=== PATIENT | male | born 1995 | race Two or more races ===

== ENCOUNTER 2020-10-06 19:27 | Emergency (ER) | payer OTHER, SELFPAY ==
[2020-10-06 19:55] VITALS: BP 129/75; PULSE 98; RESP 19; TEMP 37.3; O2SAT 99; BMI 27.1
--- NOTE | 2020-10-06 21:44 | ED.GENADULT ---
HPI - General Adult General Chief complaint: General Medical Stated complaint: Dizziness, Sob, Nausea Time Seen by Provider: 10/06/20 21:44 Source: patient Mode of arrival: ambulatory Limitations: no limitations History of Present Illness HPI narrative: 4 days has had dizziness, nausea and shortness of breath Onset (ago): day(s) Severity: mild Related Data Allergies Allergy/AdvReac Type Severity Reaction Status Date / Time No Known Allergies Allergy Unverified 08/15/20 18:39 [No Known Allergies*] Review of Systems Constitutional: Constitutional: Reports no additional constitutional complaints Eyes: Eyes: Reports no additional eye complaints ENT: Denies dizziness Cardiovascular: Cardiovascular: Reports no additional cardiovascular complaints Respiratory: Respiratory: Reports as per HPI Gastrointestinal: Gastrointestinal: Reports no additional gastrointestinal complaints Musculoskeletal: Musculoskeletal: Reports no additional musculoskeletal complaints Integumentary/Breasts: Skin/Breast: Denies rash Neurologic: Reports system reviewed and no additional complaints, except as documented, Denies dizziness and Denies Sensory deficit (Neuro) Psychiatric: Psychiatric: Denies anxiety [facility] Past Medical History Medical History No significant past medical history Social History Social History Alcohol intake: never Smoking Status: Never smoker Use of substances other than those prescribed or required for medical reasons: No Advance Directives: No Advance Directives Information Provided: Yes Physical Exam Vital Signs: Vital Signs: Last Vital Signs Temp 99.1 F 10/06/20 19:55 Pulse 78 10/06/20 22:16 Resp 16 10/06/20 22:16 BP 122/68 10/06/20 22:16 Pulse Ox 98 10/06/20 22:16 Body Mass Index 27.1 Const: General: healthy appearing Nutritional Appearance: average body habitus Orientation/consciousness: oriented to person and patient oriented x3 Limitations: no limitations HENMT: Head: Yes normal to inspection Ears: external ears normal General nose exam: Normal external nose present Mouth: Normal oral and palatal mucosa present and oropharynx normal Throat: Yes posterior oropharynx normal Eyes: General: appearance normal, both eyes and all related structures Neck: Other: supple Neck: Yes normal visual inspection Chest: Chest palpation & inspection: normal inspection of the chest Resp: Auscultation: clear to auscultation bilaterally Cardio: Jugular venous distension: no JVD Rate: regular rate Rhythm: regular rhythm Heart sounds: S1 normal heart sound present and S2 normal heart sound present GI: Inspection: Yes normal to inspection Palpation (GI): Soft to palpation, nontender and No hepatosplenomegaly present Auscultation: normal bowel sounds : General: Yes no CVA tenderness Back/Spine/Pelvis: Back: no CVA tenderness Skin: General skin exam: no rashes or lesions noted Neuro: General: oriented to person and patient oriented x3 Cranial nerves: Yes CN's II-XII intact bilaterally Motor exam (neuro): 5/5 motor strength present throughout Sensory Exam: No Sensory deficit (Neuro) Extrem: General: Yes normal to inspection Psych: Appearance: grossly normal Course Course Course Narrative: patient looks well, no evidence of DM as patient was concerned, COVID swab pending Medical Decision Making MDM Narrative Medical decision making narrative: Healthy appearing male, COVID pending, sugar slightly elevated Lab Data Labs: Lab Results 10/06/20 Range/Units 22:12 POC Glucose 116 H (60-115) mg/dL Discharge Plan Discharge Clinical Impression: COVID-19 Patient Disposition: Home, Self-Care Instructions: COVID-19 (Coronavirus Disease 2019) (ED) Additional Instructions: return for increasing shortness of breath Referrals: Physician,Unknown [Primary Care Provider] - 2 days
[2020-10-06 22:16] VITALS: BP 122/68; PULSE 78; RESP 16; O2SAT 98
--- NOTE | 2020-10-06 22:16 | PC.NURSE ---
POC noted to be 116 mg/dl. Covid swab obtained and sent.
[2020-10-06 22:20] LABS: Glucose, Whole Blood 116 mg/dL (60-115)
== END 2020-10-06 22:51 | disposition home or self-care (01) ==
PROVIDERS: Emergency Provider Emergency Medicine
DX: R42 Dizziness and giddiness (principal); R11.0 Nausea; Z20.828 Contact with and (suspected) exposure to other viral communicable diseases
CPT/HCPCS: 82947; 99283; U0003

== ENCOUNTER → 2020-11-07 12:37 | Outpatient (REF) | payer OTHER, SELFPAY ==
--- NOTE | 2020-11-07 13:00 | ECG_ITS ---
Hook-up date: 2020-11-07 12:53:00 Duration: 25:59:00 Test Indications: DIZZINESS Medications: [id number] QRS complexes 1 Ventricular ectopics which represent <1 % of total QRS comp. * Supraventricular ectopics which represent % of total QRS comp. * Paced QRS complexs which represent % of total QRS comp. VENTRICULAR ECTOPY 1 Isolated 0 Bigeminal Cycles 0 Couplets 0 Runs 0 Beats in Runs * Beats LONGEST at * BPM at :: -- * Beats FASTEST at * BPM at :: -- SUPRAVENTRICULAR ECTOPY * Isolated * Couplets * Runs * Beats in Runs * Beats LONGEST at * BPM at :: -- * Beats FASTEST at * BPM at :: -- HEART RATES 44 MIN at 05:18:10 2020-11-08 80 AVG 135 MAX at 07:45:31 2020-11-08 LONGEST RR 1.4800 secs at 05:18:06 2020-11-08 S-T LEVELS Channel 1 - 128 mm at 12:53:00 2020-11-07 - 128 mm at 12:53:00 2020-11-07 Channel 2 - 128 mm at 12:53:00 2020-11-07 - 128 mm at 12:53:00 2020-11-07 Channel 3 - 128 mm at 03:21:21 -- - 128 mm at 03:21:21 Underlying rhythm is sinus; Average ventricular rate 80/min; range 44-135/min; No significant supraventricular or ventricular ectopy; No sustained arrhythmias; Patient did not report any symptoms in the diary Referred By: Natalie Zacarias Overread By: ROMIE GERARD
== END ==
LOC: HO.CARD 12:37
PROVIDERS: PCP Internal Medicine; Visit Provider Family Medicine
DX: R42 Dizziness and giddiness (principal)
CPT/HCPCS: 93226

== ENCOUNTER 2021-01-15 08:45 | Outpatient (REF) | payer OTHER, SELFPAY | END 2021-01-15 08:46 | disposition home or self-care (01) | LOC: HO.LAB 08:45 | PROVIDERS: PCP Family Medicine; Visit Provider Internal Medicine | DX: Z20.822 Contact with and (suspected) exposure to COVID-19 (principal) | CPT/HCPCS: 36415; C9803; U0003; U0005 ==

== ENCOUNTER 2022-03-28 19:43 | Emergency (ER) | payer MEDICAID, SELFPAY ==
--- NOTE | ~2022-03-28 | XR_ITS ---
EXAMINATION: XR HAND, LEFT CLINICAL INFORMATION: Pain. Swelling. Trauma COMPARISON: None TECHNIQUE: PA, lateral, and oblique views of the left hand. FINDINGS: The bones and soft tissues are normal. No fracture. Alignment is anatomic. Joint spaces are maintained. No erosions or soft tissue calcifications. XR/XR hand LT min 3V IMPRESSION: Normal left hand.
--- NOTE | ~2022-03-28 | XR_ITS ---
EXAMINATION: XR WRIST, LEFT CLINICAL INFORMATION: Pain COMPARISON: 03/28/2022 images of the hand TECHNIQUE: Four views of the left wrist. FINDINGS: The bones and soft tissues are normal. No fracture. Alignment is anatomic with normal joint spaces. No erosions or abnormal soft tissue calcifications. XR/XR wrist LT 2V IMPRESSION: No acute bony abnormality. Incidental ulnar negative variance of the wrist.
[2022-03-28 20:13] VITALS: BP 130/70; PULSE 70; RESP 14; TEMP 36.6; O2SAT 99; BMI 28.5
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
[2022-03-28] MEDS: Morphine Sulfate Immed Release 15 MG TABLET PO (22:07)
== END 2022-03-28 22:31 | disposition home or self-care (01) ==
LOC: HO.ED 20:54
PROVIDERS: Emergency Provider Emergency Medicine Emergency Medical Services
DX: M79.642 Pain in left hand (principal); M79.89 Other specified soft tissue disorders
CPT/HCPCS: 73100; 73130; 99283; 99284

== ENCOUNTER 2022-04-01 08:36 | Outpatient (REF) | payer MEDICAID, SELFPAY ==
--- NOTE | ~2022-04-01 | XR_ITS ---
EXAMINATION: XR WRIST, LEFT CLINICAL INFORMATION: Left wrist pain. COMPARISON: 03/28/2022 TECHNIQUE: 4 views of the left wrist. FINDINGS: There is no evidence of acute fracture or dislocation of the left wrist. Left wrist joint spaces are maintained. There is mild negative ulnar variation present. No significant soft tissue swelling appreciated. XR/XR wrist LT w scaphoid IMPRESSION: No significant abnormality of the left wrist identified.
== END 2022-04-01 08:37 | disposition home or self-care (01) ==
LOC: HO.HOSX 08:36
PROVIDERS: Visit Provider Orthopaedic Surgery
DX: M25.532 Pain in left wrist (principal); S62.341A Nondisplaced fracture of base of second metacarpal bone, left hand, initial encounter for closed fracture; Y04.0XXA Assault by unarmed brawl or fight, initial encounter; Y93.9 Activity, unspecified; Y92.9 Unspecified place or not applicable; Y99.8 Other external cause status
CPT/HCPCS: 73110; 99202

== ENCOUNTER 2022-04-14 18:28 | Outpatient (REF) | payer MEDICAID, SELFPAY ==
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
== END 2022-04-14 18:29 | disposition home or self-care (01) ==
LOC: HO.MRI 18:28
PROVIDERS: Visit Provider Orthopaedic Surgery
DX: M25.532 Pain in left wrist (principal)
CPT/HCPCS: 73221

== ENCOUNTER 2022-04-28 09:13 | Outpatient (REF) | payer MEDICAID, SELFPAY ==
--- NOTE | ~2022-04-28 | XR_ITS ---
EXAMINATION: XR HAND, LEFT CLINICAL INFORMATION: Pain left hand. COMPARISON: Left wrist 04/01/2022. MRI left wrist 04/14/2022. TECHNIQUE: PA, lateral, and oblique views of the left hand. FINDINGS: There is a nondisplaced fracture base of proximal 2nd metacarpal. No additional fracture seen. The soft tissues are grossly unremarkable. XR/XR hand LT min 3V IMPRESSION: Nondisplaced fracture base of proximal 2nd metacarpal as seen on MRI and retrospectively on the plain films. There is no change. The soft tissues are unremarkable.
== END 2022-04-28 09:14 | disposition home or self-care (01) ==
LOC: HO.HOSX 09:13
PROVIDERS: Visit Provider Orthopaedic Surgery
DX: S62.311A Displaced fracture of base of second metacarpal bone, left hand, initial encounter for closed fracture (principal); X58.XXXA Exposure to other specified factors, initial encounter; Y93.9 Activity, unspecified; Y92.9 Unspecified place or not applicable; Y99.9 Unspecified external cause status
CPT/HCPCS: 73130; 99212

== ENCOUNTER 2022-07-31 22:54 | Emergency (ER) | payer MEDICAID, SELFPAY ==
[2022-07-31 22:55] VITALS: BP 133/69; PULSE 79; RESP 16; TEMP 35.8; O2SAT 99; BMI 28.5
== END 2022-08-01 03:48 | disposition left against medical advice (07) ==
PROVIDERS: Emergency Provider Emergency Medicine; PCP Nurse Practitioner Primary Care
DX: R22.41 Localized swelling, mass and lump, right lower limb (principal)
CPT/HCPCS: 99281

== ENCOUNTER 2023-03-31 13:06 | Emergency (ER) | payer MEDICAID, SELFPAY ==
[2023-03-31 13:34] VITALS: BP 126/69; PULSE 74; RESP 18; TEMP 36.6; O2SAT 98; BMI 28.7
--- NOTE | 2023-03-31 13:53 | ED.SKABFB ---
HPI - Skin/Abscess/Foreign Bdy General Chief complaint: Skin/Abscess/Foreign Body Stated complaint: rash on right side Time Seen by Provider: 03/31/23 13:43 Source: patient, RN notes reviewed and old records reviewed Mode of arrival: ambulatory History of Present Illness HPI narrative: 27-year-old male with no significant past medical history presenting to the ED complaining of painful rash to right groin area x3 days. Reports area is worsening with slight drainage. Patient admits he is sexually active with 1 partner, denies concern or history of STI. Denies injury/trauma, testicular/scrotal pain, fever, dysuria/hematuria, abdominal pain, nausea/vomiting MD complaint: rash Onset (ago): day(s) Related Data Previous Rx's Medication Instructions Recorded morphine 15 mg immediate release 15 mg PO Q8H PRN pain #10 tabs 03/28/22 tablet cephalexin 500 mg capsule 500 mg PO QID 7 days #28 caps 03/31/23 doxycycline hyclate 100 mg tablet 100 mg PO BID 7 days #14 tabs 03/31/23 mupirocin 2 % topical ointment 1 appl topical BID 7 days #22 grams 03/31/23 Allergies Allergy/AdvReac Type Severity Reaction Status Date / Time No Known Allergies Allergy Verified 03/31/23 13:36 [No Known Allergies*] Review of Systems Review of Systems: Constitutional: No Fever, No Chills ENT/Mouth: No Ear Pain, No Nasal Congestion, No sore throat, No Rhinorrhea, No Swallowing Difficulty Cardiovascular: No Chest Pain, No SOB Respiratory: No Cough, No Sputum, No Wheezing Gastrointestinal: No Nausea, No Vomiting, No Diarrhea, No Constipation, No Abdominal pain Genitourinary: No Dysuria, No Hematuria, No Flank Pain Musculoskeletal: No joint pain, No Myalgias, No Joint Swelling Skin: +Skin Lesions, + rash Neuro: No Weakness, No Numbness, No Paresthesias Yes all other systems are reviewed and are negative Constitutional: Constitutional: Reports as per [facility] Past Medical History Attestation statement: The following information was validated with the patient. Source: old records reviewed Medical History No significant past medical history Social History Social History Alcohol intake: never Patient Tobacco Use Status: Never used Tobacco Advance Directives: No Advance Directives Information Provided: No Current occupational status: employed Current occupation: rt hand / maintenance Physical Exam Vital Signs: Vital Signs: Last Vital Signs Temp 98 F 03/31/23 13:34 Pulse 74 03/31/23 13:34 Resp 18 03/31/23 13:34 BP 126/69 03/31/23 13:34 Pulse Ox 98 03/31/23 13:34 O2 Del Method Room Air 03/31/23 13:34 BMI result Body Mass Index 28.7 Const: General: cooperative, healthy appearing and no acute distress Orientation/consciousness: patient oriented x3 Limitations: no limitations HEENT: Head: Yes normal to inspection and Yes atraumatic Ears: hearing grossly normal bilaterally General nose exam: Normal external nose present Face and sinus: Yes normal facial exam Eyes: General: appearance normal, both eyes and all related structures EOM: EOMs intact bilaterally Neck: Neck: Yes normal visual inspection and Yes no meningeal signs Resp: Effort & Inspection: normal respiratory effort and no respiratory distress Cardio: Rate: regular rate GI: Inspection: Yes normal to inspection Palpation (GI): Soft to palpation, nontender, no guarding and not rigid : Other: + right groin/inguinal area with small pustules/folliculitis and surrounding erythema, + induration, no fluctuance. No warmth. No extension to testicle/scrotum, right testicle nontender. No appreciable hernia no active drainage Neuro: General: patient oriented x3, tone normal, moves all extremities and no meningeal signs Gait exam (Neuro): Normal gait present Extrem: General: Yes normal to inspection Medical Decision Making Medical Decision Making MDM Narrative: 27-year-old male with no significant past medical history presenting to the ED complaining of painful rash to right groin area x3 days. On exam vital signs stable, NAD, nontoxic appearing, physical exam as noted above with suspected folliculitis with small pustules to right inguinal/groin area with surrounding cellulitis and small indurated area. No fluctuance or active drainage. No appreciable ulcerations. Testicle nontender. No evidence of Garfield gangrene. Lower suspicion for STI/UTI Plan: Herpes culture, routine culture, p.o. antibiotics, topical mupirocin Results discussed with patient including worrisome signs and symptoms and strict return precautions, and when to return to the emergency department. They verbalized understanding and feel safe for discharge at this time. Differential Diagnosis Differential Diagnoses: The differential diagnosis associated with the presentation includes As above Admission/Observation Consideration of admission/observation: Escalation of care including admission/observation considered Lab Data MDM Lab Attestation statement: I reviewed the patient's lab results. Radiology Impression Discussion of test interpretation with radiology: I have reviewed the radiologist's reading. External Record Review External record reviewed: Inpatient record, Office record, Outpatient record, Prior outpatient labs, Prior outpatient radiology, Primary care record and Outside ED record Tests considered The following testing was considered but not selected: As above Prescription Management I considered prescription management with: Pain Medication, Antiviral and Antibiotic Discharge Plan Discharge Clinical Impression: Folliculitis, Cellulitis, Abscess Patient Disposition: Home, Self-Care Instructions: Cellulitis (DC), Folliculitis (ED), Abscess (ED) Additional Instructions: You have an infection of your hair follicle called folliculitis. Mupirocin as a topical antibiotic please use as prescribed You also have surrounding cellulitis/infection and underlying abscess. Doxycycline and Keflex are oral antibiotics take as prescribed If redness is spreading/worsening, pain becomes unbearable, area turns to a burleson, you have fever, difficulty urinating return to the ED immediately Apply warm compresses at home Follow up with your doctor Prescriptions: New mupirocin 2 % ointment 1 appl topical BID 7 Days Qty: 22 0RF cephalexin 500 mg capsule 500 mg PO QID 7 Days Qty: 28 0RF doxycycline hyclate 100 mg tablet 100 mg PO BID 7 Days Qty: 14 0RF No Action morphine 15 mg tablet 15 mg PO Q8H PRN (Reason: pain) Qty: 10 0RF Rx Instructions: Patient can partially filled this prescription upon request Referrals: Y[facility] [Primary Care Provider] - 3 days Stand Alone Forms: Work/School Release Interventions: ED Discharge Assessment Last Done: 03/31/23 15:30 Discharge Date/Time: 03/31/23 15:31
== END 2023-03-31 15:31 | disposition home or self-care (01) ==
PROVIDERS: Physician Assistant; Emergency Provider Student in an Organized Health Care Education/Training Program; PCP Nurse Practitioner Primary Care
DX: L73.9 Follicular disorder, unspecified (principal); L02.214 Cutaneous abscess of groin; L03.314 Cellulitis of groin
CPT/HCPCS: 36415; 87070; 87205; 87255; 99283

== ENCOUNTER 2024-06-15 08:13 | Outpatient (REF) | payer OTHER, SELFPAY ==
[2024-06-15 11:24] LABS: MANUAL DIFF FLAG NO
[2024-06-15 11:30] LABS: Basophils Percent Auto 0.6 % (0-2); Eosinophils Percent Auto 0.9 % (0-4); Hematocrit 44.2 % (42.0-52.0); Hemoglobin 14.8 g/dl (14.0-18.0); Imm Gran Abs Auto 0.01 X10*3/uL (0.00-0.03); Imm Gran Pct Auto 0.2 % (0.0-0.4); Lymphocytes Absolute Auto 1.5 X10*3/uL (1.2-4.9); Lymphocytes Percent Auto 31.7 % (20-40); Mean Corpuscular HGB Conc 33.5 g/dl (31.0-36.0); Mean Corpuscular Hemoglobin 28.7 pg (27.0-33.0); Mean Corpuscular Volume 85.8 fL (80.0-98.0); Monocytes Absolute Auto 0.3 X10*3/uL (0.1-1.2); Monocytes Percent Auto 7.1 % (2-11); Neutrophils Absolute Auto 2.8 x10*3/uL (2.0-8.3); Neutrophils Percent Auto 59.5 % (45-73); Platelet Count 147 X10*3/uL (160-400); Red Blood Count 5.15 X10*6/uL (4.60-5.80); Red Cell Distribution Width 11.8 % (11.0-16.0); White Blood Count 4.7 X10*3/uL (4.8-10.8)
[2024-06-15 11:45] LABS: Anion Gap 12 (12-20); Blood Urea Nitrogen 20 mg/dL (9-16); Calcium 9.8 mg/dL (8.4-10.2); Carbon Dioxide 24 mmol/L (22-29); Chloride 108 mmol/L (96-108); Cholesterol 173 mg/dL (<200); Estimated Glomerular Filt Rate > 60; Glucose Random 86 mg/dL (60-115); HDL Cholesterol 41 mg/dL (>40); LDL Cholesterol Calculated 115 mg/dL (<100); Magnesium 2.1 mg/dL (1.6-2.6); Potassium 4.4 mmol/L (3.3-5.1); Sodium 140 mmol/L (135-145); Triglycerides 87 mg/dL (<150)
[2024-06-15 11:56] LABS: HIV AB/AG Nonreactive (Nonreactive); HIV Num 1 0.05 S/CO (0.00-0.99)
[2024-06-15 12:04] LABS: Vitamin D 25-OH Total 39.5 ng/mL (>30)
[2024-06-15 13:29] LABS: CT PCR NOT DETECTED (Not Detect.); NG PCR NOT DETECTED (Not Detect.)
[2024-06-20 19:29] LABS: Aldolase 6.2 U/L (<=8.1)
== END 2024-06-15 08:14 | disposition home or self-care (01) ==
LOC: HO.HHCL 08:13
PROVIDERS: Visit Provider Family Medicine
DX: M79.604 Pain in right leg (principal); M79.605 Pain in left leg; Z11.3 Encounter for screening for infections with a predominantly sexual mode of transmission; E78.5 Hyperlipidemia, unspecified
CPT/HCPCS: 36415; 80048; 80061; 82085; 82306; 82550; 83735; 84443; 85025; 87389; 87491; 87591

== ENCOUNTER 2024-07-12 13:37 | Outpatient (RCR) | payer OTHER, SELFPAY | END 2024-08-30 15:07 | disposition home or self-care (01) | LOC: HO.PT 13:37 | PROVIDERS: PCP Nurse Practitioner Primary Care; Visit Provider Family Medicine | DX: M79.604 Pain in right leg (principal); M79.605 Pain in left leg | CPT/HCPCS: 97110; 97161; 97535 ==

== ENCOUNTER 2024-10-19 08:14 | Outpatient (REF) | payer OTHER, SELFPAY ==
[2024-10-19 11:21] LABS: MANUAL DIFF FLAG NO
[2024-10-19 11:26] LABS: Basophils Absolute Auto 0.1 X10*3/uL (0.0-0.2); Basophils Percent Auto 1.1 % (0-2); Eosinophils Absolute Auto 0.1 X10*3/uL (0.0-0.4); Eosinophils Percent Auto 1.1 % (0-4); Hematocrit 45.1 % (42.0-52.0); Hemoglobin 15.2 g/dl (14.0-18.0); Imm Gran Abs Auto 0.01 X10*3/uL (0.00-0.03); Imm Gran Pct Auto 0.2 % (0.0-0.4); Lymphocytes Absolute Auto 1.3 X10*3/uL (1.2-4.9); Lymphocytes Percent Auto 26.3 % (20-40); Mean Corpuscular HGB Conc 33.7 g/dl (31.0-36.0); Mean Corpuscular Hemoglobin 28.7 pg (27.0-33.0); Mean Corpuscular Volume 85.1 fL (80.0-98.0); Mean Platelet Volume 11.6 fL (9.4-12.4); Monocytes Absolute Auto 0.3 X10*3/uL (0.1-1.2); Monocytes Percent Auto 5.7 % (2-11); Neutrophils Absolute Auto 3.1 x10*3/uL (2.0-8.3); Neutrophils Percent Auto 65.6 % (45-73); Platelet Count 158 X10*3/uL (160-400); Red Cell Distribution Width 11.7 % (11.0-16.0); White Blood Count 4.8 X10*3/uL (4.8-10.8)
[2024-10-19 11:45] LABS: Rheumatoid Factor < 13.0 IU/mL (<15.0)
[2024-10-19 11:56] LABS: Alanine Aminotransferase 63 U/L (0-40); Albumin Level 4.5 g/dL (3.5-5.0); Alkaline Phosphatase 58 U/L (39-117); Aspartate Amino Transferase 34 U/L (5-37); Bilirubin Direct 0.3 mg/dL (0.0-0.5); Bilirubin Total 1.2 mg/dL (0.0-1.0); C Reactive Protein < 0.10 mg/dL (< or = 0.50); Total Protein 6.8 g/dL (6.5-8.0)
[2024-10-19 12:06] LABS: Erythrocyte Sedimentation Rate 1 MM/HR (0-15)
[2024-10-19 12:15] LABS: Folate 12.9 ng/mL (> or = 4.0); Vitamin B12 479 pg/mL (200-900)
[2024-10-23 11:23] LABS: A. Phagocytphilium DNA,RT-PCR NOT DETECTED (NOT DETECTED); Babesia Microti DNA, RT-PCR NOT DETECTED (NOT DETECTED); Borrelia Miyamotoi,DNA RT-PCR NOT DETECTED (NOT DETECTED); E.Chaffeensis DNA RT-PCR NOT DETECTED (NOT DETECTED); Lyme(Borrelia ssp)DNA RT-PCR NOT DETECTED (NOT DETECTED)
[2024-10-24 08:44] LABS: Anti Nuclear Antibody Screen NEGATIVE (NEGATIVE)
[2024-10-24 21:48] LABS: Aldolase 9.4 U/L (<=8.1)
== END 2024-10-19 08:15 | disposition home or self-care (01) ==
LOC: HO.HHCL 08:14
PROVIDERS: Visit Provider Family Medicine
DX: M79.18 Myalgia, other site (principal)
CPT/HCPCS: 36415; 80076; 82085; 82550; 82607; 82746; 85025; 85652; 86038; 86140; 86431; 87468; 87469; 87478; 87484; 87798

== ENCOUNTER 2024-10-28 22:29 | Emergency (ER) | payer OTHER, SELFPAY ==
[2024-10-28 22:34] VITALS: BP 131/72; PULSE 77; RESP 16; TEMP 37; O2SAT 98
--- NOTE | 2024-10-28 22:51 | ED_ITS ---
HPI - General Adult General Chief complaint: General Medical Stated complaint: left shoulder/bilateral leg pain Time Seen by Provider: 10/28/24 22:42 Source: patient Mode of arrival: ambulatory Limitations: no limitations History of Present Illness ED Provider: Dr. Carito Benson HPI narrative: Patient comes to the emergency room complaining of left shoulder pain and bilateral lower leg pain for several months, close to a year according to the patient. Patient states that he has addressed this issue with his PCP, patient is waiting for a referral to be confirm for rheumatology. Patient states that nothing has changed, 4 months, it is the usual pain. Denies any injuries. 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 States that he recently got blood work done and his CPK was a bit elevated. Related Data Previous Rx's ?Medication ?Instructions ?Recorded morphine 15 mg immediate release 15 mg PO Q8H PRN pain #10 tabs 03/28/22 tablet cephalexin 500 mg capsule 500 mg PO QID 7 days #28 caps 03/31/23 doxycycline hyclate 100 mg tablet 100 mg PO BID 7 days #14 tabs 03/31/23 mupirocin 2 % topical ointment 1 appl topical BID 7 days #22 grams 03/31/23 cyclobenzaprine 10 mg tablet 10 mg PO TID PRN muscle spasm #10 10/28/24 tabs naproxen 500 mg tablet 500 mg PO BID #14 tabs 10/28/24 Allergies Allergy/AdvReac Type Severity Reaction Status Date / Time No Known Allergies Allergy Verified 10/28/24 22:37 [No Known Allergies*] Review of Systems Review of Systems: Constitutional : No Weight loss, No Fever, No Chills, No Night Sweats, No Fatigue, No Malaise ENT/Mouth : No Hearing loss, No Ear Pain, No Nasal Congestion, No Sinus Pain, No Hoarseness, No sore throat, No Rhinorrhea, No Swallowing Difficulty Eyes: No Eye Pain, No Swelling, No Redness, No Foreign Body, No Discharge, No Vision Changes Cardiovascular : No Chest Pain, No SOB, No Dyspnea on Exertion, No Orthopnea, No Edema, No Palpitations Respiratory : No Cough, No Sputum, No Wheezing, No Smoke Exposure, No Dyspnea Gastrointestinal : No Nausea, No Vomiting, No Diarrhea, No Constipation, No abdominal Pain, No Hematochezia, No Melena Genitourinary : no irregular bleeding, No Dysuria, No Urinary Frequency, No Hematuria, No Urinary Incontinence, No Urgency, No Flank Pain, No Urinary Flow Changes, No Hesitancy Musculoskeletal : Chronic shoulder pain and chronic lower extremity pain, No Myalgias, No Joint Swelling Skin : No Skin Lesions, No rash Neuro : No Weakness, No Numbness, No Paresthesias, No Loss of Consciousness, No Dizziness, No Headache Psych : No Anxiety/Panic, No Depression, No SI/HI/AH/VH, No Social Issues, Heme/Lymph: No Bruising, No Bleeding,No Lymphadenopathy Endocrine : No Polyuria, No Polydipsia, No Temperature Intolerance [facility] Past Medical History Medical History No significant past medical history Social History Social History Alcohol intake: never Patient Tobacco Use Status: Never used Tobacco Advance Directives: No Advance Directives Information Provided: No Current occupational status: employed Current occupation: rt hand / maintenance Physical Exam ED Vital Signs: Vital Signs - 24 hr 10/28/24 22:34 Temperature 98.6 F Pulse Rate 77 Respiratory Rate 16 Blood Pressure 131/72 Pulse Oximetry 98 Oxygen Delivery Method Room Air BMI result Body Mass Index 30.0 Const Other: Appearance: Alert. Oriented X3. No acute distress. Well-appearing Eyes: Pupils equal, round and reactive to light. ENT: Pharynx normal. Neck: Normal inspection. Neck supple. No lymph nodes noted. No crepitus CVS: Normal heart rate and rhythm. Pulses normal. Normal S1 and S2 Respiratory: No respiratory distress. Breath sounds normal. No Wheezing. No rales Abdomen: Soft and nontender. No rigidity. No distention. Skin: Skin warm and dry. Normal skin color. Normal skin turgor. Extremities: No lower extremity edema. No Lacerations. No Rash Neuro: Oriented X 3. No motor deficit. No sensory deficit. Moving all extremities. No slurred speech. CN 2 through 12 grossly intact Psych: calm, cooperative, normal affect Medical Decision Making Medical Decision Making MDM Narrative: I reviewed patient's medical chart, approximately a week and half ago patient had blood work done, patient's creatinine was 356. No kidney disease I discussed with the patient that he will likely need a referral to Rheumatology. Patient may need more detail blood work done which is down through the outpatient setting. Also, I discussed with the patient that depending on his blood work an evolution of symptoms, he may be need a muscle biopsy, to the specialists discretion. -in the meantime, patient agreeable to get an injection of IM ketorolac and p.o. cyclobenzaprine. -I discussed with the patient that by no means this is a cure, this is just symptomatic treatment, more in-depth blood work and lab work needs to be done. Patient agrees with plan, Patient will follow-up with his primary care physician. Differential Diagnosis Differential Diagnoses: The differential diagnosis associated with the presentation includes (Musculoskeletal pain, myositis, rhabdomyolysis) Discharge Plan Discharge Clinical Impression: Musculoskeletal pain Patient Disposition: Home, Self-Care Instructions: Musculoskeletal Pain (ED) Additional Instructions: Please follow-up with your primary care physician tomorrow. If you have any worsening or new symptoms, please return to the emergency room or call 911 Prescriptions: New naproxen 500 mg tablet 500 mg PO BID Qty: 14 0RF cyclobenzaprine 10 mg tablet 10 mg PO TID PRN (Reason: muscle spasm) Qty: 10 0RF Rx Instructions: But not use this medication before going to work No Action morphine 15 mg tablet 15 mg PO Q8H PRN (Reason: pain) Qty: 10 0RF Rx Instructions: Patient can partially filled this prescription upon request mupirocin 2 % ointment 1 appl topical BID 7 Days Qty: 22 0RF cephalexin 500 mg capsule 500 mg PO QID 7 Days Qty: 28 0RF doxycycline hyclate 100 mg tablet 100 mg PO BID 7 Days Qty: 14 0RF Referrals: Funmilayo Blas MD [Physician] - 10/30/24 Print Language: Vietnamese
[2024-10-28] MEDS: Cyclobenzaprine HCl 10 MG TABLET PO (22:55)
[2024-10-28] MEDS: Ketorolac Tromethamine 30 MG/ML VIAL IM (22:56)
[2024-10-28 23:04] VITALS: BP 131/72; PULSE 77; RESP 16; TEMP 37; O2SAT 98
== END 2024-10-28 23:05 | disposition home or self-care (01) ==
PROVIDERS: Emergency Provider Emergency Medicine; PCP Nurse Practitioner Primary Care
DX: M79.18 Myalgia, other site (principal); M25.512 Pain in left shoulder; M79.605 Pain in left leg; M79.604 Pain in right leg
CPT/HCPCS: 96372; 99283; 99284; J1885